=== PATIENT | male | born 1980 | race Caucasian/White ===

== ENCOUNTER 2020-12-01 04:44 | Emergency (ER) | payer BC ==
[2020-12-01] MEDS ORDERED: Ondansetron 4 MG/2 ML SDV IVPUSH ONE (05:17)
--- NOTE | 2020-12-01 05:25 | EDM.PDOC ---
ED HPI GENERAL MEDICAL PROBLEM - General Chief Complaint: Gastrointestinal Problem Stated Complaint: NAUSEA/CHILLS Time Seen by Provider: 12/01/20 04:54 Source of Information: Reports: Patient, Family () History Limitations: Reports: No Limitations - History of Present Illness INITIAL COMMENTS - FREE TEXT/NARRATIVE: Mr. Mckinney is a very pleasant 40-year-old gentleman who now presents to the ED stating that he developed nausea, watery diarrhea, chills, and right upper quadrant abdominal pain radiating across his entire abdomen, on Wednesday night, 11/29/2020. His symptoms largely resolved by 14:00 to 15:00 Wednesday afternoon, but his symptoms worsened again around 3:00 this morning. He has not had an actual fever; the highest temperature measured was 97.4 degrees. No cough or urinary symptoms. He took a Tylenol/ibuprofen combination medicine around 11:00 Wednesday morning, but nothing since. The patient and his drove from their home in [place] to [place] earlier this week, and are currently on their way back. The patient denies eating any recent bad tasting or smelling food. None of his close contacts are similarly ill. No recent antibiotics. Prior to Wednesday night, the patient denies having a recent fever, chills, sore throat, ear pain, nasal or sinus congestion, cough, dyspnea, chest pain, palpitations, nausea, vomiting, constipation, diarrhea, abdominal pain, urinary symptoms, recent weight gain or weight loss, recent bloody bowel movements or black bowel movements, recent joint aches, headaches, or rashes. The patient and his are returning home to [place]. He has received 2 (Moderna) COVID vaccinations. Abdomen Pain Score (Numeric/FACES): 4 - Related Data Allergies Allergy/AdvReac Type Severity Reaction Status Date / Time No Known Allergies Allergy Verified 12/01/20 04:57 Home Meds: Home Meds Ondansetron [Zofran ODT] 1 tab PO Q8H PRN #10 tab.dis 12/01/20 [Rx] Past Medical History - Infectious Disease History Infectious Disease History: Reports: Chicken Pox - Past Surgical History Musculoskeletal Surgical History: Reports: Other (See Below) (Left 4th finger tendon repair) Social & Family History - Tobacco Use Tobacco Use Status *Q: Never Tobacco User Second Hand Smoke Exposure: No - Caffeine Use Caffeine Use: Reports: None - Alcohol Use Alcohol Use History: No - Recreational Drug Use Recreational Drug Use: No - Living Situation & Occupation Living situation: Reports: , with Spouse, with Family (19 yr old daughter, [id number], [id number]) Occupation: Employed (IT) ED ROS GENERAL - Review of Systems Review Of Systems: Comprehensive ROS is negative, except as noted in HPI. ED EXAM, GENERAL - Physical Exam Exam: See Below Exam Limited By: No Limitations General Appearance: Alert, WD/WN, Mild Distress (appears uncomfortable) Eye Exam: Bilateral Eye: EOMI, Normal Inspection Ears: Normal External Exam, Hearing Grossly Normal Nose: Normal Inspection Throat/Mouth: Normal Inspection, Normal Lips, Normal Voice, No Airway Compromise Head: Atraumatic, Normocephalic Neck: Normal Inspection, Full Range of Motion Respiratory/Chest: No Respiratory Distress, Lungs Clear, Normal Breath Sounds, No Accessory Muscle Use Cardiovascular: Normal Peripheral Pulses, Regular Rate, Rhythm, No Edema, No Gallop, No JVD, No Murmur, No Rub Peripheral Pulses: 3+: Radial (L), Radial (R) GI/Abdominal: Normal Bowel Sounds, Soft, No Organomegaly, No Distention, No Abnormal Bruit, No Mass, Tender (Sometimes tender, sometimes not, to the RUQ. Not consistent. "Uncomfortable" to palpation elsewhere, but no distinct tenderness.) Back Exam: Normal Inspection, Full Range of Motion. No: CVA Tenderness (L), CVA Tenderness (R) Extremities: Normal Inspection, Normal Range of Motion, No Pedal Edema, Normal Capillary Refill Neurological: Alert, Oriented, Normal Cognition, No Motor/Sensory Deficits Psychiatric: Normal Affect Skin Exam: Warm, Intact, Normal Color, No Rash, Diaphoretic Course - Vital Signs Last Recorded V/S: Last Vital Signs Temp 37.0 C 12/01/20 07:07 Pulse 88 12/01/20 07:07 Resp 16 12/01/20 07:07 BP 106/71 12/01/20 07:07 Pulse Ox 96 12/01/20 07:07 - Orders/Labs/Meds Orders: Active Orders 24 hr Category Date Time Status Sodium Chloride 0.9% [Normal Saline] 1,000 ml Med 12/01/20 05:30 Active IV ASDIRECTED Medication Orders Sodium Chloride (Normal Saline) 1,000 mls @ 150 mls/hr IV ASDIRECTED LISETTE Last Admin: 12/01/20 05:32 Dose: 150 mls/hr Documented by: RADHA Labs: Laboratory Tests 12/01/20 12/01/20 12/01/20 Range/Units 05:35 05:50 05:50 WBC 6.94 (4.23-9.07) K/mm3 RBC 5.22 (4.63-6.08) M/mm3 Hgb 15.4 (13.7-17.5) gm/dl Hct 45.5 (40.1-51.0) % MCV 87.2 (79.0-92.2) fl MCH 29.5 (25.7-32.2) pg MCHC 33.8 (32.2-35.5) g/dl RDW Std Deviation 40.3 (35.1-43.9) fL Plt Count 169 (163-337) K/mm3 MPV 9.8 (9.4-12.3) fl Neutrophils % (Manual) 83 H (40-60) % Band Neutrophils % 0 (0-10) % Lymphocytes % (Manual) 13 L (20-40) % Atypical Lymphs % 0 % Monocytes % (Manual) 4 (2-10) % Eosinophils % (Manual) 0 L (0.8-7.0) % Basophils % (Manual) 0 L (0.2-1.2) Platelet Estimate Adequate RBC Morph Comment Normal Sodium 140 (136-145) mEq/L Potassium 4.2 (3.5-5.1) mEq/L Chloride 104 (98-107) mEq/L Carbon Dioxide 26 (21-32) mEq/L Anion Gap 14.2 (5-15) BUN 19 H (7-18) mg/dL Creatinine 1.0 (0.7-1.3) mg/dL Est Cr Clr Drug Dosing 77.17 mL/min Estimated GFR (MDRD) > 60 (>60) mL/min BUN/Creatinine Ratio 19.0 H (14-18) Glucose 121 H (70-99) mg/dL Calcium 8.3 L (8.5-10.1) mg/dL Total Bilirubin 1.0 (0.2-1.0) mg/dL AST 13 L (15-37) U/L ALT 27 (16-63) U/L Alkaline Phosphatase 71 (46-116) U/L Total Protein 7.3 (6.4-8.2) g/dl Albumin 3.8 (3.4-5.0) g/dl Globulin 3.5 gm/dL Albumin/Globulin Ratio 1.1 (1-2) Lipase 115 (73-393) U/L SARS-CoV-2 RNA ([facility]) Negative (NEGATIVE) Meds: Medications Generic Name Dose Route Start Last Admin Trade Name Freq PRN Reason Stop Dose Admin Sodium Chloride 1,000 mls @ 150 mls/hr 12/01/20 05:30 12/01/20 05:32 Normal Saline IV 150 mls/hr ASDIRECTED LISETTE Administration Discontinued Medications Generic Name Dose Route Start Last Admin Trade Name Freq PRN Reason Stop Dose Admin Diatrizoate Meglum/Diatrizoate Sod 120 ml 12/01/20 06:54 12/01/20 06:59 Diatrizoate Meglumine/Diatrizoate Sodium 37% 120 Ml Bottle PO 12/01/20 06:55 45 ml ONETIME ONE Administration Iopamidol 100 ml 12/01/20 06:54 12/01/20 07:00 Iopamidol 612 Mg/Ml 100 Ml Bottle IVPUSH 12/01/20 06:55 100 ml ONETIME ONE Administration Ondansetron HCl 4 mg 12/01/20 05:17 12/01/20 05:33 Ondansetron 4 Mg/2 Ml Sdv IVPUSH 12/01/20 05:18 4 mg ONETIME ONE Administration Sodium Chloride 10 ml 12/01/20 06:54 12/01/20 07:00 Sodium Chloride 0.9% 10 Ml Sdv FLUSH 12/01/20 06:55 10 ml ONETIME ONE Administration - Re-Assessments/Exams Free Text/Narrative Re-Assessment/Exam: 12/01/20 05:19 The etiology of the patient's symptoms is not immediately clear. It may be a simple viral gastroenteritis, however, I have ordered a work-up that includes several blood tests, a swab for the SARS-CoV-2 virus, and a CT of the abdomen and pelvis with oral and IV contrast. In the meantime, the patient will be given some IV fluid and IV Zofran. He declined an offer for pain medication at this time. 12/01/20 06:50 The patient's CBC is unremarkable. His CMP is remarkable for a BUN slightly elevated at 19, with a Cr normal at 1.0, and mild hyperglycemia of 121, with the remainder of his CMP being unremarkable. His lipase level is within normal limits at 115. His swab for the SARS-CoV-2 virus is negative. 12/01/20 07:29 CT of the abdomen and pelvis with oral and IV contrast is read by vRjonathon as: 1. Nondilated fluid-filled small and large bowel. Correlate for gastroenteritis or enterocolitis type picture. No bowel obstruction. 2. Cholelithiasis. 12/01/20 07:36 Test results discussed with the patient and his . As above, today's work-up indicates that the patient is suffering from gastroenteritis. I will discharge him home with a prescription for Zofran ODT, and he can take OTC the loperamide as needed for diarrhea. I will recommend a bland diet and that he stay adequately hydrated. Departure - Departure Time of Disposition: 07:37 Disposition: Home, Self-Care 01 Condition: Good Clinical Impression: Gastroenteritis - Discharge Information *PRESCRIPTION DRUG MONITORING PROGRAM REVIEWED*: Not Applicable *COPY OF PRESCRIPTION DRUG MONITORING REPORT IN PATIENT FLOYD: Not Applicable Prescriptions: Ondansetron [Zofran ODT] 1 tab PO Q8H PRN #10 tab.dis PRN Reason: Nausea/Vomiting Referrals: PCP,Not In Area [Primary Care Provider] - Forms: ED Department Discharge Additional Instructions: You were seen in the emergency room after developing nausea, vomiting, chills, and abdominal pain extending from your upper right abdomen, across your belly. Work-up in the ER included several blood tests, a swab for the SARS-CoV-2 virus, and a CT of your abdomen and pelvis with oral and IV contrast. Your blood work and your swab for the SARS-CoV-2 virus were unremarkable. The CT of your abdomen and pelvis indicates that you have gastroenteritis. Unfortunately, there are no medicines to get rid of gastroenteritis, however, there are medicines to treat the symptoms. You have been given a prescription for the antinausea medicine Zofran ODT. You may dissolve 1 tablet of Zofran ODT on your tongue up to every 8 hours, as needed for nausea/vomiting. If you experience diarrhea, you may take [id number] loperamide (Imodium A- D) as described on the label. Stay adequately hydrated. Gatorade or Pedialyte are best. Avoid juice and milk, as they may worsen your diarrhea. We recommend that you you eat a bland diet, such as rice, oatmeal, or mashed potatoes. Chicken noodle soup with saltine crackers is an excellent choice. If any other problems, please do not hesitate to return to the ER. Sepsis Event Note (ED) - Focused Exam Vital Signs: Vital Signs Temp Pulse Resp BP Pulse Ox 12/01/20 07:07 37.0 C 88 16 106/71 96 12/01/20 04:53 36.4 C 106 H 18 109/83 96 - My Orders Last 24 Hours: My Active Orders 12/01/20 05:30 Sodium Chloride 0.9% [Normal Saline] 1,000 ml IV ASDIRECTED - Assessment/Plan Last 24 Hours: My Active Orders 12/01/20 05:30 Sodium Chloride 0.9% [Normal Saline] 1,000 ml IV ASDIRECTED
[2020-12-01] MEDS ORDERED: Sodium Chloride 0.9% 1,000 ML IV SCH (05:30)
[2020-12-01] MEDS ORDERED: Diatrizoate Meglumine/Diatrizoate Sodium 37% 120 ML Bottle PO ONE (06:54)
[2020-12-01] MEDS ORDERED: Iopamidol 612 MG/ML 100 ML Bottle IVPUSH ONE (06:54)
[2020-12-01] MEDS ORDERED: Sodium Chloride 0.9% 10 ML SDV FLUSH ONE (06:54)
--- NOTE | 2020-12-01 07:28 | CT ---
CT abdomen and pelvis Technique: Multiple axial sections were obtained from above the dome of the diaphragm inferiorly through the pubic symphysis. Intravenous and oral contrast were utilized. Delayed images were also obtained through the bladder. Reconstructed coronal and sagittal images were obtained. Comparison: No prior abdominal imaging is available. Findings: Visualized lung bases show nothing acute. Liver shows no focal abnormality. Several minimal gallstones appear to be present within the gallbladder. Spleen size is normal. Small amount of gastroesophageal reflux of contrast is noted into the distal esophagus. Adrenal glands show no nodule. Pancreas shows no abnormality. Kidneys show symmetric contrast enhancement. No hydronephrosis or mass is appreciated. Delayed images shows contrast within the distal ureters and within the bladder. Aorta is seen and appears normal in size. No retroperitoneal adenopathy or mesenteric abnormalities are seen. Appendix is seen which is normal in size. No pelvic mass or adenopathy is seen. No bowel dilatation is seen. Fair amount of fluid is noted within the right colon and transverse colon and lesser fluid is seen within the sigmoid colon. Bone window settings were reviewed which appear within normal limits for the patient's age. Impression: 1. Fluid within the colon. 2. Gastroesophageal reflux of contrast within the distal esophagus. 3. Several minimal gallstones. 4. No additional abnormality is appreciated on CT study of the abdomen and pelvis. Diagnostic code #2
== END 2020-12-01 08:00 | disposition home or self-care (01) ==
LOC: JD.ED 04:44
DX: K52.9 Noninfective gastroenteritis and colitis, unspecified (principal); Z20.822 Contact with and (suspected) exposure to COVID-19
CPT/HCPCS: 36415; 74177; 80053; 83690; 85007; 85027; 87635; 96374; 99284; J2405; J7030; Q9963; Q9967; U0002